=== PATIENT | male | born 1995 | race Caucasian/White ===

== ENCOUNTER 2021-04-25 16:50 | Emergency (ER) | payer OTHER ==
[~2021-04-25] VITALS: Wt 81.6 kg
[~2021-04-25 16:50] MED LIST: AUGMENTIN 400 M1 CTB PO; CLARITIN10 MG PO; MOTRIN400 MG PO; NO DAILY MEDS; TYLENOL W/CODE480 ML PO
== END 2021-04-25 19:00 | disposition left against medical advice (07) ==
LOC: ED 16:50
DX: S62.634A Displaced fracture of distal phalanx of right ring finger, initial encounter for closed fracture (principal); Z53.29 Procedure and treatment not carried out because of patient's decision for other reasons; W22.8XXA Striking against or struck by other objects, initial encounter; Y93.89 Activity, other specified; Y92.89 Other specified places as the place of occurrence of the external cause; Y99.8 Other external cause status